=== PATIENT | female | born 1995 | race Two or more races ===

== ENCOUNTER 2016-06-01 17:27 | Emergency (ER) | payer MEDICAID ==
[~2016-06-01] VITALS: Ht 162.6 cm; Wt 61.2 kg
[2016-06-01] MEDS ORDERED: IV SET PRIMARY PUMP SET 1 EA INFUS.SET MC ONE (17:44)
[2016-06-01] MEDS ORDERED: LORAZEPAM 1 MG TABLET ONE (17:44)
[2016-06-01] MEDS ORDERED: IV NS 0.9% 1,000 ML ONE (17:44)
[2016-06-01] MEDS ORDERED: LORAZEPAM 1 MG TABLET PO ONE (18:00)
[2016-06-01] MEDS ORDERED: IV NS 0.9% 1,000 ML BAG IV ONE (18:00)
[2016-06-01] MEDS ORDERED: LEVETIRACETAM (500MG) 500 MG in IV NS 0.9% 100 ML IV ONE (18:00)
[2016-06-01 19:25] VITALS: BP 112/64
== END 2016-06-01 19:27 | disposition home or self-care (01) ==
LOC: ER 17:28
DX: G40.909 Epilepsy, unspecified, not intractable, without status epilepticus (principal); J45.909 Unspecified asthma, uncomplicated
CPT/HCPCS: 36415; 84703-TC; A4606; J1953; J7030; Z7610

== ENCOUNTER 2021-09-17 22:51 | Emergency (ER) | payer BC, MEDICAID ==
[~2021-09-17] VITALS: Ht 160 cm; Wt 78.9 kg
[2021-09-17] MEDS ORDERED: LIDOCAINE VISCOUS 2% UD 15 ML UDC MM ONE (23:30)
[2021-09-17] MEDS ORDERED: IV NS 0.9% 1,000 ML BAG IV ONE (23:30)
[2021-09-17] MEDS ORDERED: MAG HYDROX/AL HYDROX/SIMETH 30 ML UDC PO ONE (23:30)
[2021-09-17] MEDS ORDERED: ONDANSETRON HCL/PF 4 MG/2 ML VIAL IVP ONE (23:30)
[2021-09-17] MEDS ORDERED: LIDOCAINE VISCOUS 2% UD 15 ML UDC ONE (23:53)
[2021-09-17] MEDS ORDERED: ONDANSETRON HCL/PF 4 MG/2 ML VIAL ONE (23:53)
[2021-09-17] MEDS ORDERED: MAG HYDROX/AL HYDROX/SIMETH 30 ML UDC ONE (23:53)
[2021-09-17] MEDS ORDERED: MORPHINE SULFATE INJ 4 MG/ML DISP.SYRIN ONE (23:54)
[2021-09-18] MEDS ORDERED: MORPHINE SULFATE INJ 2 MG/ML DISP.SYRIN IV ONE
--- NOTE | 2021-09-18 00:06 | NUR ---
US AT BEDSIDE
--- NOTE | 2021-09-18 00:07 | NUR ---
BLOOD WORK COLLECTED SENT TO LAB
[2021-09-18 00:08] LABS: BASOPHILS # (AUTO) 0.1 K/uL (0.0-0.2); BASOPHILS % (AUTO) 0.6 % (0.0-2.0); EOSINOPHILS % (AUTO) 1.7 % (0.0-6.0); HEMATOCRIT 40 % (33-45); HEMOGLOBIN 13.5 g/dL (11.5-14.8); LYMPHOCYTES # (AUTO) 3.5 K/uL (0.8-4.8); LYMPHOCYTES % (AUTO) 35.1 % (20.0-44.0); MEAN CORPUSCULAR HGB CONC 34 g/dl (31.0-36.0); MEAN CORPUSCULAR VOLUME 88 fL (82-100); MONOCYTES # (AUTO) 0.8 K/uL (0.1-1.30); MONOCYTES % (AUTO) 7.6 % (2.0-12.0); NEUTROPHILS # (AUTO) 5.5 K/uL (1.8-8.9); PLATELET COUNT (AUTO) 274 K/uL (150-450); RED BLOOD CELL COUNT(AUTO) 4.52 MIL/uL (4.0-5.2)
[2021-09-18 00:23] VITALS: BP 121/70
[2021-09-18 00:43] LABS: CALCIUM, SERUM 8.4 mg/dL (8.5-10.1); CREATININE 0.7 mg/dL (0.6-1.3); POTASSIUM 3.5 mmol/L (3.5-5.1)
[2021-09-18 00:49] LABS: ALBUMIN 3.8 g/dL (3.4-5.0); BILIRUBIN,TOTAL 0.1 mg/dL (0.2-1.0); TOTAL PROTEIN, SERUM 7.7 g/dL (6.4-8.2)
[2021-09-18] MEDS ORDERED: PANT40TA2 PO (01:08)
[2021-09-18] MEDS ORDERED: MAG355OR18 PO (01:08)
[2021-09-18] MEDS ORDERED: ONDA4TAB11 PO (01:09)
--- NOTE | 2021-09-18 01:41 | NUR ---
Patient discharged to home in stable condition. Written and verbal after care instructions given. Patient verbalizes understanding of instruction.
== END 2021-09-18 02:09 | disposition home or self-care (01) ==
LOC: ER 23:03
DX: R10.30 Lower abdominal pain, unspecified (principal); K29.70 Gastritis, unspecified, without bleeding; G43.909 Migraine, unspecified, not intractable, without status migrainosus; J45.909 Unspecified asthma, uncomplicated; Z87.19 Personal history of other diseases of the digestive system; Z79.899 Other long term (current) drug therapy
CPT/HCPCS: 36415; 71045; 76705; 80048; 80076; 83690; 85025; 96361; 96374; 96375; 99285; J2270; J2405; J7030

== ENCOUNTER 2021-09-19 19:50 | Emergency (ER) | payer BC ==
[~2021-09-19] VITALS: Ht 167.6 cm; Wt 79.4 kg
[~2021-09-19 19:50] MED LIST: MAG355OR18 PO; ONDA4TAB11 PO; PANT40TA2 PO
[2021-09-19 20:00] VITALS: BP 117/71
== END 2021-09-19 20:49 | disposition home or self-care (01) ==
LOC: ER 19:59
DX: Z02.79 Encounter for issue of other medical certificate (principal); K29.70 Gastritis, unspecified, without bleeding; J45.909 Unspecified asthma, uncomplicated; Z86.69 Personal history of other diseases of the nervous system and sense organs; Z87.19 Personal history of other diseases of the digestive system; Z79.899 Other long term (current) drug therapy